=== PATIENT | female | born 1965 ===

== ENCOUNTER 2018-12-19 22:06 | Emergency (ER) | payer MEDICAID ==
[~2018-12-19] VITALS: Ht 149.9 cm; Wt 59.1 kg
[2018-12-19 22:16] VITALS: Ht 149.9 cm; Wt 59.1 kg
[2018-12-20 00:42] LABS: HEMATOCRIT 35.1 % (36.0-48.0); MCH 32.8 pg (26.0-34.0); MCHC 34.2 g/dL (31.0-37.0); MCV 95.9 fL (80.0-100.0); MEAN PLATELET VOLUME 9.9 fL (7.4-10.4); PLATELET COUNT 238 10x3/uL (130-400); RBC 3.66 10x6/uL (4.00-5.40); RDW 12.5 % (11.5-14.5)
[2018-12-20 01:04] LABS: APTT 27.3 SECONDS (22.8-39.4); INR 1.07 (0.85-1.17); PROTIME 13.4 SECONDS (11.6-15.0)
[2018-12-20 01:06] LABS: ALBUMIN 2.8 g/dL (3.4-5.0); ALKALINE PHOSPHATASE 86 U/L (46-116); ALT (SGPT) 92 U/L (10-68); BILIRUBIN - TOTAL 0.24 mg/dL (0.2-1.3); CALC OSMOLALITY 273 mosm/kg (275-300); CALCIUM 8.1 mg/dL (8.5-10.1); CARBON DIOXIDE 24.6 mmol/L (21.0-32.0); CHLORIDE - SERUM 103 mmol/L (98-107); CREATININE - SERUM 0.9 mg/dL (0.6-1.3); GLUCOSE 97 mg/dL (74-106); POTASSIUM - SERUM 3.8 mmol/L (3.5-5.1); PROTEIN - SERUM 8.4 g/dL (6.4-8.2); SODIUM 136 mmol/L (136-145); UREA NITROGEN 17 mg/dL (7-18); eGFR NON AFRICAN AMERICAN 69 mL/min (90-120)
[2018-12-20 01:13] LABS: AMYLASE - SERUM 32 U/L (25-115); CKMB 0.6 U/L (0.0-3.6); CREATINE KINASE 44 UL (21-215); LIPASE 76 U/L (73-393)
[2018-12-20 01:15] LABS: TROPONIN-I < 0.017 ng/mL (0.000-0.060)
[2018-12-20 01:31] LABS: APPEARANCE CLOUDY (CLEAR); BILIRUBIN NEGATIVE (NEGATIVE); COLOR DK YELLOW (YELLOW); GLUCOSE NEGATIVE (NEGATIVE); KETONE NEGATIVE (NEGATIVE); NITRITE POSITIVE (NEGATIVE); PROTEIN 1+ mg/dL (NEGATIVE); SPECIFIC GRAVITY 1.015 (1.005-1.020); UROBILINOGEN NORMAL (NORMAL)
[2018-12-20 01:35] LABS: BACTERIA MANY /hpf (NONE SEEN); EPITHELIAL CELLS OCC /hpf (0-5); RED CELLS - URINE 0-5 /hpf (0-5); WHITE CELLS - URINE 25-50 /hpf (0-5)
[2018-12-20] MEDS ORDERED: MACROBID100 MG PO (02:01)
[2018-12-20] MEDS ORDERED: KEFLEX500 MG PO (02:01)
[2018-12-20] MEDS ORDERED: IBUPROFEN800 MG PO (02:02)
[2018-12-20] MEDS ORDERED: CYCLOBENZAPRINE10 MG PO (02:02)
[2018-12-20] MEDS ORDERED: ACETAMINOPHEN500 M1 PO (02:02)
[2018-12-20 03:27] VITALS: BP 123/74
== END 2018-12-20 03:29 | disposition home or self-care (01) ==
LOC: D.ER 22:06
PROVIDERS: Family Medicine
DX: N39.0 Urinary tract infection, site not specified (principal); F15.10 Other stimulant abuse, uncomplicated; M79.18 Myalgia, other site